=== PATIENT | female | born 1965 | race Caucasian/White ===

== ENCOUNTER 2021-10-22 09:34 | Outpatient (CLI) | payer OTHER | END 2021-10-22 09:35 | disposition home or self-care (01) | LOC: CSHCT 09:34 | PROVIDERS: ATTEND Family Medicine | DX: Z12.2 Encounter for screening for malignant neoplasm of respiratory organs (principal); F17.210 Nicotine dependence, cigarettes, uncomplicated; R91.8 Other nonspecific abnormal finding of lung field | CPT/HCPCS: 71271 ==